=== PATIENT | female | born 1950 | race Caucasian/White ===

== ENCOUNTER → 2024-03-09 11:23 | Outpatient (CLI) | payer MEDICARE, SELFPAY ==
[2024-03-09 12:27] LABS: Add Manual Diff / Slide Review NO; Basophils Absolute Auto 0 /uL (0-100); Basophils Percent Auto 1.4 % (0-2); Eosinophils Absolute Auto 100 /uL (0-450); Eosinophils Percent Auto 2.9 % (2-4); Lymphocytes Absolute Auto 600 /uL (1100-4500); Lymphocytes Percent Auto 17.9 % (25-40); Mean Corpuscular HGB Conc 35.2 % (30-36); Mean Corpuscular Hemoglobin 33.5 PG (26-34); Mean Corpuscular Volume 95.3 fL (80-100); Monocytes Absolute Auto 400 /uL (0-900); Neutrophils Absolute Auto 2400 /uL (1500-7000); Neutrophils Percent Auto 65.8 % (50-75); Platelet Count 321 X10^3/uL (150-400); Red Blood Cell Count 2.04 X10^6/uL (4.0-5.2); Red Cell Distribution Width 21.8 % (11.6-14.8); White Blood Cell Count 3.6 X10^3/uL (4.5-11.0)
[2024-03-09 12:32] LABS: Hematocrit 19.5 % (36-46); Hemoglobin 6.9 g/dL (12.0-16.0)
[2024-03-09 12:48] LABS: Anisocytosis 3+; Poikilocytosis 1+
[2024-03-09 13:05] LABS: HEMOLYSIS < 15 (0-50); Iron 279 ug/dL (37-170)
[2024-03-09 13:14] LABS: Total Iron Binding Capacity 295 ug/dL (265-497); Transferrin 225 mg/dL (206-381)
[2024-03-09 13:18] LABS: Percent Iron Saturation 95 % (15-50)
[2024-03-09 13:40] LABS: Ferritin 580 ng/mL (11-264)
[2024-03-09 14:10] LABS: Folate > 20.0 ng/mL (2.76-20.0); Vitamin B12 421 pg/mL (239-931)
[2024-03-09 21:06] LABS: Alanine Aminotransferase 16 IU/L (<35); Albumin 3.6 g/dL (3.5-5.0); Albumin Globulin Ratio 1.6 (1.0-2.8); Alkaline Phosphatase 69 U/L (38-126); Aspartate Aminotransferase 22 IU/L (14-36); BUN Creatinine Ratio 20.4 (6-22); Bilirubin Total 0.5 mg/dL (0.2-1.3); Blood Urea Nitrogen 19 mg/dL (7-17); Calcium 9.3 mg/dL (8.4-10.2); Carbon Dioxide 26 mmol/L (22-32); Chloride 104 mmol/L (98-107); Estimated Glomerular Filt Rate > 60 mL/min (>60); Globulin 2.2 g/dL (1.7-4.1); Glucose 108 mg/dL (80-110); HEMOLYSIS < 15 (0-50); Sodium 138 mmol/L (137-145); Total Protein 5.8 g/dL (6.3-8.2)
[2024-03-09 21:46] LABS: Cancer Antigen 125 > 1000 U/mL (0-35)
== END ==
PROVIDERS: Referring Provider Internal Medicine Hematology & Oncology; Visit Provider Internal Medicine Hematology & Oncology
DX: C57.00 Malignant neoplasm of unspecified fallopian tube (principal); D64.9 Anemia, unspecified; D70.1 Agranulocytosis secondary to cancer chemotherapy; Z51.11 Encounter for antineoplastic chemotherapy; Z51.12 Encounter for antineoplastic immunotherapy
CPT/HCPCS: 36415; 80053; 82607; 82728; 82746; 83540; 83550; 85025; 86304

== ENCOUNTER 2024-03-09 13:25 | Emergency (ER) | payer MEDICARE, SELFPAY ==
[2024-03-09] VITALS (33 sets, daily range): BP systolic 120–171; BP diastolic 57–88; PULSE 75–93; RESP 13–25; TEMP 36.6–37.3; O2SAT 93–99; BMI 29.7
--- NOTE | 2024-03-09 14:16 | EKG_ITS ---
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
[2024-03-09 14:32] LABS: Add Manual Diff / Slide Review NO; Basophils Absolute Auto 0 /uL (0-100); Basophils Percent Auto 1.4 % (0-2); Eosinophils Absolute Auto 100 /uL (0-450); Lymphocytes Absolute Auto 600 /uL (1100-4500); Mean Corpuscular HGB Conc 35.6 % (30-36); Mean Corpuscular Volume 95.7 fL (80-100); Monocytes Absolute Auto 300 /uL (0-900); Monocytes Percent Auto 8.9 % (3-14); Neutrophils Absolute Auto 2300 /uL (1500-7000); Neutrophils Percent Auto 68.7 % (50-75); Platelet Count 291 X10^3/uL (150-400); Red Cell Distribution Width 21.5 % (11.6-14.8); White Blood Cell Count 3.3 X10^3/uL (4.5-11.0)
[2024-03-09 14:34] LABS: Hematocrit 18.1 % (36-46); Hemoglobin 6.5 g/dL (12.0-16.0)
[2024-03-09 14:38] LABS: INR 1.6 (0.9-1.3); Prothrombin Time 17.9 SECONDS (9.4-12.5)
[2024-03-09 14:41] LABS: PTT Partial Thromboplastin Tim 38 SECONDS (25.1-36.5)
[2024-03-09 14:42] LABS: Alanine Aminotransferase 16 IU/L (<35); Albumin 3.7 g/dL (3.5-5.0); Albumin Globulin Ratio 1.5 (1.0-2.8); Alkaline Phosphatase 68 U/L (38-126); Aspartate Aminotransferase 22 IU/L (14-36); BUN Creatinine Ratio 18.8 (6-22); Bilirubin Total 0.6 mg/dL (0.2-1.3); Blood Urea Nitrogen 19 mg/dL (7-17); Calcium 9.2 mg/dL (8.4-10.2); Carbon Dioxide 30 mmol/L (22-32); Chloride 102 mmol/L (98-107); Estimated Glomerular Filt Rate 60 mL/min (>60); Globulin 2.5 g/dL (1.7-4.1); Glucose 100 mg/dL (80-110); HEMOLYSIS < 15 (0-50); Potassium 3.7 mmol/L (3.4-5.1); Sodium 138 mmol/L (137-145); Total Protein 6.2 g/dL (6.3-8.2)
[2024-03-09 15:02] LABS: Anisocytosis 3+; Microcytosis 3+
--- NOTE | 2024-03-09 16:37 | ED.RECABL ---
HPI - Recheck/Abnormal Lab/Rx General Chief Complaint: Recheck/Abnormal Lab/Rx Stated Complaint: abn lab, sent by pcp Time Seen by Provider: 03/09/24 14:39 Source: patient Mode of arrival: Wheelchair History of Present Illness HPI narrative: 73-year-old woman visiting from [place]. 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 She was feeling increasingly fatigued comes in for H&H check last time this happened she received 2 units of packed red blood cells and that lasted about a month. She returns to [place] in 4 days. Related Data Allergies Allergy/AdvReac Type Severity Reaction Status Date / Time No Known Drug Allergies Allergy Verified 03/09/24 13:30 Review of Systems Review of Systems Narrative: Pertinent positive and negative findings as per HPI Patient History Medical History (Updated 03/09/24 @ 19:40 by Tamra Rahman MD) Anemia Primary peritoneal adenocarcinoma Social History Smoking Status: Never smoker Smoking Status: Never smoker Substance Use Type: does not use Exam Initial Vital Signs Initial Vital Signs: Vital Signs Temperature 97.8 F 03/09/24 13:30 Pulse Rate 85 03/09/24 13:30 Respiratory Rate 18 03/09/24 13:30 Blood Pressure 136/88 03/09/24 13:30 Pulse Oximetry 97 03/09/24 13:30 Oxygen Delivery Method Room Air 03/09/24 13:30 General: Alert appropriate in no acute distress Respiratory: Able to speak in full sentences, no obvious respiratory distress Cardiac exam: No murmurs Skin: Quite pale but no rashes or skin breakdown Neurologic: Globally weak but otherwise Grossly intact no obvious asymmetries or abnormalities Psych: appropriate insight and affect, cooperative Course Orders Ordered: ED Orders 03/09/24 14:06 EKG-12 Lead Stat 03/09/24 14:15 Complete Blood Count AUTO DIFF Stat Comprehensive Metabolic Panel Stat PRBC [Packed Cells] Stat PTT Partial Thromboplastin Дмитрий Stat Prothrombin Time INR Stat Type and Screen Stat Discontinued Medications Furosemide (Furosemide 40 Mg/4 Ml Vial) 20 mg IV NOW ONE Stop: 03/09/24 16:41 Last Admin: 03/09/24 19:09 Dose: 20 mg Documented By: ARTHUR Vital Signs Vital signs: Vital Signs - 8 hr 03/09/24 13:30 10/31/24 14:03 03/09/24 14:05 Temperature 97.8 F Pulse Rate 85 84 80 Respiratory Rate 18 15 Blood Pressure 136/88 Pulse Oximetry 97 97 99 Oxygen Delivery Method Room Air 03/09/24 14:05 03/09/24 14:30 03/09/24 14:30 Temperature Pulse Rate 79 Respiratory Rate 15 Blood Pressure 138/63 126/60 Pulse Oximetry 96 Oxygen Delivery Method 03/09/24 15:00 03/09/24 15:00 03/09/24 15:30 Temperature Pulse Rate 78 Respiratory Rate 15 Blood Pressure 120/57 L 130/62 Pulse Oximetry 96 Oxygen Delivery Method 03/09/24 15:30 03/09/24 16:00 03/09/24 16:00 Temperature Pulse Rate 78 79 Respiratory Rate 13 13 Blood Pressure 127/62 Pulse Oximetry 94 94 Oxygen Delivery Method 03/09/24 16:30 03/09/24 16:30 03/09/24 17:00 Temperature Pulse Rate 78 80 Respiratory Rate 14 17 Blood Pressure 133/63 Pulse Oximetry 95 96 Oxygen Delivery Method 03/09/24 17:00 03/09/24 17:03 03/09/24 17:15 Temperature 98.6 F Pulse Rate 80 79 Respiratory Rate 16 15 Blood Pressure 131/60 131/60 Pulse Oximetry 96 Oxygen Delivery Method 03/09/24 17:15 03/09/24 17:16 03/09/24 17:30 Temperature 98.9 F Pulse Rate 79 Respiratory Rate 15 Blood Pressure 129/60 129/60 130/63 Pulse Oximetry Oxygen Delivery Method 03/09/24 17:30 03/09/24 17:45 03/09/24 17:45 Temperature Pulse Rate 79 78 Respiratory Rate 15 14 Blood Pressure 134/65 Pulse Oximetry 95 97 Oxygen Delivery Method 03/09/24 18:00 03/09/24 18:00 03/09/24 18:15 Temperature Pulse Rate 78 Respiratory Rate 14 Blood Pressure 136/70 129/60 Pulse Oximetry 96 Oxygen Delivery Method 03/09/24 18:15 03/09/24 18:27 03/09/24 18:27 Temperature Pulse Rate 78 93 H Respiratory Rate 14 16 Blood Pressure 120/58 L Pulse Oximetry 95 94 Oxygen Delivery Method 03/09/24 18:30 03/09/24 18:30 03/09/24 18:46 Temperature 98.9 F Pulse Rate 87 Respiratory Rate 17 Blood Pressure 127/59 L 146/66 H Pulse Oximetry 98 Oxygen Delivery Method 03/09/24 18:46 03/09/24 19:00 03/09/24 19:00 Temperature Pulse Rate 79 79 Respiratory Rate 15 14 Blood Pressure 138/61 Pulse Oximetry 95 95 Oxygen Delivery Method 03/09/24 19:15 03/09/24 19:15 03/09/24 19:30 Temperature 99.0 F Pulse Rate 79 Respiratory Rate 17 Blood Pressure 128/62 Pulse Oximetry 95 Oxygen Delivery Method MDM - Recheck/Abnormal Lab/Rx Lab Data 03/09/24 14:15 03/09/24 14:15 Labs: Lab Results 03/09/24 Range/Units 14:15 WBC 3.3 L (4.5-11.0) X10^3/uL RBC 1.90 L (4.0-5.2) X10^6/uL Hgb 6.5 L* (12.0-16.0) g/dL Hct 18.1 L* (36-46) % MCV 95.7 (80-100) fL MCH 34.0 (26-34) PG MCHC 35.6 (30-36) % RDW 21.5 H (11.6-14.8) % Plt Count 291 (150-400) X10^3/uL Neut % (Auto) 68.7 (50-75) % Lymph % (Auto) 19.0 L (25-40) % [place] % (Auto) 8.9 (3-14) % Eos % (Auto) 2.0 (2-4) % Baso % (Auto) 1.4 (0-2) % Neut # (Auto) 2300 (1190-3223) /uL Lymph # (Auto) 600 L (0569-6968) /uL [place] # (Auto) 300 (0-900) /uL Eos # (Auto) 100 (0-450) /uL Baso # (Auto) 0 (0-100) /uL RBC Morphology Not Reportable Anisocytosis 3+ H Microcytosis 3+ H PT 17.9 H (9.4-12.5) SECONDS INR 1.6 H (0.9-1.3) APTT 38 H (25.1-36.5) SECONDS Sodium 138 (137-145) mmol/L Potassium 3.7 (3.4-5.1) mmol/L Chloride 102 (98-107) mmol/L Carbon Dioxide 30 (22-32) mmol/L BUN 19 H (7-17) mg/dL Creatinine 1.01 (0.52-1.04) mg/dL Estimated GFR 60 (>60) mL/min BUN/Creatinine Ratio 18.8 (6-22) Glucose 100 (80-110) mg/dL Calcium 9.2 (8.4-10.2) mg/dL Total Bilirubin 0.6 (0.2-1.3) mg/dL AST 22 (14-36) IU/L ALT 16 (<35) IU/L Alkaline Phosphatase 68 (38-126) U/L Total Protein 6.2 L (6.3-8.2) g/dL Albumin 3.7 (3.5-5.0) g/dL Globulin 2.5 (1.7-4.1) g/dL Albumin/Globulin Ratio 1.5 (1.0-2.8) Blood Type A Positive Antibody Screen Negative Crossmatch See Detail MDM Narrative Medical decision making narrative: 73-year-old woman with a history of primary peritoneal adenocarcinoma followed in [place] currently on Lymparza for chemotherapy which causes bone marrow suppression. She has recurrent episodes of symptomatic anemia. Was transfused approximately a month ago. Is increasingly weak with exertional dyspnea and instructed by oncologist come to the nearest emergency department. Hemoglobin is 6.5 with hematocrit of 18.1. She is given 2 units of packed red blood cells with 20 mg of Lasix between the units. Significantly symptomatically improved after transfusion Patient will returning to [place] in approximately 4 days. I encouraged her to return to the ER should she have worsening symptoms Discharge Plan Departure Patient Disposition: Home Clinical Impression: Primary adenocarcinoma of peritoneum Anemia Qualifiers: Anemia type: unspecified type Qualified Code(s): D64.9 - Anemia, unspecified Activity Restrictions/Additional Instructions: Thank you for coming in today We were able to transfusion 2 units of packed red blood cells. Your initial hemoglobin and hematocrit was 6.5 and 18.1. I hope that you feel better, have a bit more energy to enjoy your visit in the [facility] and your travels back home to [place] go well Stand Alone Forms: Patient Portal/API/Survey
[2024-03-09] MEDS: FUROSEMIDE 40 MG/4 ML VIAL 20 MG IV (19:09)
== END 2024-03-09 21:25 | disposition home or self-care (01) ==
PROVIDERS: Emergency Provider Emergency Medicine
DX: D64.9 Anemia, unspecified (principal); C48.2 Malignant neoplasm of peritoneum, unspecified; C57.00 Malignant neoplasm of unspecified fallopian tube; D70.1 Agranulocytosis secondary to cancer chemotherapy; Z51.11 Encounter for antineoplastic chemotherapy; Z51.12 Encounter for antineoplastic immunotherapy
CPT/HCPCS: 36415; 36430; 80053; 82607; 82728; 82746; 83540; 83550; 85025; 85610; 85730; 86304; 86850; 86900; 86901; 93005; 99284; P9016; J1940